=== PATIENT | male | born 1950 | race Caucasian/White ===

== ENCOUNTER 2017-08-23 11:01 | Emergency (ER) | payer MEDICARE, BC ==
[~2017-08-23] VITALS: Ht 180.3 cm; Wt 120.0 kg
[2017-08-23 11:01] VITALS: BP 128/72; PULSE 57; RESP 16; TEMP 97.6; O2SAT 97
[2017-08-23 11:15] VITALS: O2SAT 98
[2017-08-23 11:18] LABS: AUTOMATED NEUTROPHIL # 3.5 TH/MM3 (1.8-7.7); BASOPHIL % 0.6 % (0.0-2.0); EOSINOPHIL # 0.2 TH/MM3 (0-0.4); EOSINOPHIL % 3.6 % (0.0-4.0); HEMATOCRIT 39.9 % (39.0-51.0); HEMOGLOBIN 13.4 GM/DL (13.0-17.0); LYMPHOCYTE # 1.8 TH/MM3 (1.0-4.8); MEAN CELL VOLUME 90.9 FL (80.0-100.0); MEAN CORPUSCULAR HEMOGLOBIN 30.6 PG (27.0-34.0); MEAN CORPUSCULAR HGB CONC 33.7 % (32.0-36.0); MONO % 10.6 % (0.0-8.0); MONOCYTE # 0.7 TH/MM3 (0-0.9); NEUT % 56.2 % (16.0-70.0); PLATELET COUNT 196 TH/MM3 (150-450); RED BLOOD COUNT 4.39 MIL/MM3 (4.50-5.90); RED CELL DISTRIBUTION WIDTH 13.2 % (11.6-17.2); WHITE BLOOD COUNT 6.2 TH/MM3 (4.0-11.0)
[2017-08-23] MEDS ORDERED: NITROGLYCERIN 400 MCG/SPRAY 4.9 GM BOTTLE SL PRN (11:30)
[2017-08-23 11:37] LABS: INTERNATIONAL NORMALIZED RATIO 1.1 RATIO; PROTHROMBIN TIME - PATIENT 10.7 SEC (9.8-11.6)
[2017-08-23] MEDS ORDERED: ROSU1TAB4 PO (11:38)
[2017-08-23] MEDS ORDERED: PRAS10TA PO (11:38)
[2017-08-23] MEDS ORDERED: BUPR150CR PO (11:38)
[2017-08-23] MEDS ORDERED: LISI-515 PO (11:38)
[2017-08-23] MEDS ORDERED: ASPI-516 CHEW (11:38)
[2017-08-23] MEDS ORDERED: TRAZ50TA12 PO (11:38)
[2017-08-23] MEDS ORDERED: ESCI10TA PO (11:38)
--- NOTE | 2017-08-23 11:45 | PD ---
HPI . Chest pain Chief Complaint: Cardiac Complaint Time Seen by Provider: 11:07 Travel History International Travel<30 days: No Contact w/Intl Traveler<30days: No Traveled to known affect area: No History of Present Illness HPI This patient is status post carpal tunnel release this morning. Following the procedure while in the recovery room, he started complaining with some throat discomfort. He was given aspirin in the recovery room and a series of EKGs were done. He was noted to have some ischemic changes in the lateral leads. EVAC was called to have him transported to the hospital. EVAC reports that the patient subsequently developed bradycardia and hypotension. Heart rate went down to 32 and blood pressure went down to 73/50. He had the onset of the throat pain prior to the onset of bradycardia and hypotension. He was treated by the medics with atropine 0.5 mg IV. Heart rate and blood pressure improved. He reports no improvement in his throat discomfort with the atropine. In addition, the patient is complaining with increasing peripheral edema. That has been an ongoing problem for the last several months. He believes that it is related to the change of his antiplatelet medication from trade name to generic. The patient is also complaining with some nasal congestion. He states that he is having difficulty exhaling through his nose. This started after the surgery. He reports previous WI with 6 stents. His discomfort today is similar to the previous WI. [facility] Social History Tobacco Use: No Allergies-Medications (Allergen,Severity, Reaction): Coded Allergies: amlodipine (Verified Allergy, Unknown, 08/23/17) Reported Meds & Prescriptions Reported Meds & Active Scripts Active Reported Escitalopram (Escitalopram Oxalate) 10 Mg Tab 10 Mg PO DAILY Wellbutrin SR 12 HR (Bupropion HCl) 150 Mg Tab 150 Mg PO Q12HR Lisinopril 20 Mg Tab 20 Mg PO DAILY Rosuvastatin (Rosuvastatin Calcium) 5 Mg Tab 5 Mg PO DAILY Trazodone (Trazodone HCl) 50 Mg Tab 50 Mg PO HS Aspirin 81 Mg Chew 81 Mg CHEW DAILY Effient (Prasugrel) 10 Mg Tab 10 Mg PO DAILY Review of Systems Except as stated in HPI: all other systems reviewed are Neg HENT: Positive: Other (throat pain) Cardiovascular: No: Chest Pain or Discomfort Respiratory: Positive: Shortness of Breath Musculoskeletal: Positive: Pain (pain in the right wrist and hand secondary to surgery done earlier today) Physical Exam Narrative GENERAL: Awake and alert. Heart rate and blood pressure have normalized. SKIN: warm/dry. HEAD: Normocephalic. Atraumatic. EYES: Pupils equal and round. No scleral icterus. No injection or drainage. ENT: No nasal bleeding or discharge. Mucous membranes pink and moist. NECK: Trachea midline. Full range of motion without pain.. CARDIOVASCULAR: Regular rate and rhythm. Heart sounds normal. RESPIRATORY: No accessory muscle use. Clear to auscultation. Breath sounds equal bilaterally. GASTROINTESTINAL: Abdomen soft. Nontender. Bowel sounds present. Nondistended. MUSCULOSKELETAL: No obvious deformities. 2+ pretibial pitting edema. NEUROLOGICAL: Awake and alert. No obvious cranial nerve deficits. Motor grossly within normal limits. Normal speech. PSYCHIATRIC: Appropriate mood and affect; insight and judgment normal. Data Data Last Documented VS Vital Signs Date Time Temp Pulse Resp B/P (MAP) Pulse Ox O2 Delivery O2 Flow Rate FiO2 08/23/17 13:15 38 16 128/67 (87) 98 Room Air 08/23/17 11:01 97.6 Orders Orders Basic Metabolic Panel (Bmp) (08/23/17 11:07) Complete Blood Count With Diff (08/23/17 11:07) Magnesium (Mg) (08/23/17 11:07) Prothrombin Time / Inr (Pt) (08/23/17 11:07) Act Partial Throm Time (Ptt) (08/23/17 11:07) Troponin I (08/23/17 11:07) Chest, Single Ap (08/23/17 11:07) Ecg Monitoring (08/23/17 11:07) Iv Access Insert/Monitor (08/23/17 11:07) Oximetry (08/23/17 11:07) Nitroglycerin Sl [place] (Nitrolingual Sl (08/23/17 11:30) Morphine Inj (Morphine Inj) (08/23/17 13:15) Labs Laboratory Tests Test 08/23/17 11:10 08/23/17 12:30 White Blood Count 6.2 TH/MM3 Red Blood Count 4.39 MIL/MM3 Hemoglobin 13.4 GM/DL Hematocrit 39.9 % Mean Corpuscular Volume 90.9 FL Mean Corpuscular Hemoglobin 30.6 PG Mean Corpuscular Hemoglobin Concent 33.7 % Red Cell Distribution Width 13.2 % Platelet Count 196 TH/MM3 Mean Platelet Volume 7.0 FL Neutrophils (%) (Auto) 56.2 % Lymphocytes (%) (Auto) 29.0 % Monocytes (%) (Auto) 10.6 % Eosinophils (%) (Auto) 3.6 % Basophils (%) (Auto) 0.6 % Neutrophils # (Auto) 3.5 TH/MM3 Lymphocytes # (Auto) 1.8 TH/MM3 Monocytes # (Auto) 0.7 TH/MM3 Eosinophils # (Auto) 0.2 TH/MM3 Basophils # (Auto) 0.0 TH/MM3 CBC Comment DIFF FINAL Differential Comment Prothrombin Time 10.7 SEC Prothromb Time International Ratio 1.1 RATIO Activated Partial Thromboplast Time 24.6 SEC Blood Urea Nitrogen 15 MG/DL Creatinine 0.99 MG/DL Random Glucose 115 MG/DL Calcium Level 8.5 MG/DL Magnesium Level 2.1 MG/DL Sodium Level 140 MEQ/L Potassium Level 3.8 MEQ/L Chloride Level 105 MEQ/L Carbon Dioxide Level 27.7 MEQ/L Anion Gap 7 MEQ/L Estimat Glomerular Filtration Rate 75 ML/MIN Troponin I LESS THAN 0.02 NG/ML Exceptions Acute Myocardial Infarction ASA Not Given on Arrival: Already taken by patient MDM Medical Decision Making Medical Screen Exam Complete: Yes Emergency Medical Condition: Yes Medical Record Reviewed: Yes (unfortunately, he has no old records here. The records from outpatient surgery indicate that he had MAC. No general anesthesia.) Interpretation(s) EKG shows a sinus rhythm with a rate of 58. He has a right bundle-branch block. He has an elevated J point in lead III. his EKGs done at the outpatient surgical center do have a suggestion of ST segment depression in the lateral leads. However, I believe that this is part of his right bundle-branch block. Unfortunately, I do not have any old EKGs for comparison in our system. Differential Diagnosis Differential diagnosis of chest pain includes but is not limited to musculoskeletal pain, pulmonary embolism, acute coronary syndrome, pneumonia, pleurisy Narrative Course This patient presents to us from the surgery Center with throat pain. He had an episode of hypotension and bradycardia but had the onset of throat pain prior to hypotension and bradycardia. There was no change in his throat pain with treatment of the bradycardia/hypotension. He was given aspirin at the surgical center. I have ordered nitroglycerin as needed for him here. Cardiac workup is in progress. He has never received any nitroglycerin here. Oxygen was removed because of the complaint of nasal congestion. The patient reports that he is now feeling better. CXR>>No focal airspace disease or effusion. No pneumothorax. Mild cardiomegaly. Mild scoliosis.. The chest x-ray was independently viewed by me. CBC & BMP Diagram 08/23/17 11:10 08/23/17 12:30 Calcium Level 8.5, Magnesium Level 2.1 trop < 0.02 The patient is reporting that he feels well but home. His requested that I discuss the case with his bias cutter, Dr. Cruz. Critical Care Narrative Aggregate critical care time was 35 minutes. Time to perform other separately billable procedures was not included in the critical care time. My time did not include minutes spent treating any other patients simultaneously or on activities that did not directly contribute to the patient's treatment. The services I provided to this patient were to treat and/or prevent clinically significant deterioration due to bradycardia/hypotension I provided critical care services requiring my management, as noted below: Chart data review, documentation time, medication orders and management, vital sign assessments/reviewing monitor data, ordering and reviewing lab tests, ordering and interpreting/reviewing x-rays and diagnostic studies, care of the patient and discussion of the patient with the admitting physicians Physician Communication Physician Communication Dr. Cruz, his bias cutter, is comfortable with d/c Diagnosis Primary Impression: Throat pain Additional Impression: Bradycardia Referrals: Wing Bre Cruz MD Patient Instructions: Bradycardia (DC), General Instructions Disposition: 01 DISCHARGE HOME Condition: Stable Siri Ivey MD Aug 23, 2017 11:45
--- NOTE | 2017-08-23 12:17 | RADRPT ---
EXAM DATE/TIME: 08/23/2017 11:40 [place] COMPARISON: No previous studies available for comparison. INDICATIONS : Short of breath. Patient sent to the emergency room from an outpatient surgery center due to an abno rmal EGG. MEDICAL HISTORY : Hypertension. Myocardial infarction. Hypercholesterolemia. SURGICAL HISTORY : Coronary artery stent. ENCOUNTER: Initial ACUITY: 1 day PAIN SCORE: 0/10 LOCATION: Bilateral chest FINDINGS: A single view of the chest demonstrates the lungs to be symmetrically aerated without evidence of mas s, infiltrate or effusion. The cardiomediastinal contours are unremarkable except mild cardiomegaly. Osseous structures are intact. CONCLUSION: 1. No focal airspace disease or effusion. No pneumothorax. Mild cardiomegaly. Mild scoliosis. Ronald Bhatia MD on August 23, 2017 at 12:14 Board Certified Radiologist. This report was verified electronically.
[2017-08-23 12:45] LABS: CHLORIDE 105 MEQ/L (98-107); SODIUM (NA) 140 MEQ/L (136-145)
[2017-08-23 12:48] LABS: BICARBONATE 27.7 MEQ/L (21.0-32.0); BLOOD UREA NITROGEN 15 MG/DL (7-18); CALCIUM 8.5 MG/DL (8.5-10.1); GLUCOSE,RANDOM 115 MG/DL (74-106); MAGNESIUM 2.1 MG/DL (1.5-2.5)
[2017-08-23 12:51] VITALS: BP 141/76; PULSE 56; RESP 18; O2SAT 97
[2017-08-23 12:52] LABS: CREATININE 0.99 MG/DL (0.60-1.30); GLOMERULAR FILTRATION RATE 75 ML/MIN (>89)
[2017-08-23 12:57] LABS: TROPONIN I LESS THAN 0.02 NG/ML (0.02-0.05)
[2017-08-23 13:15] VITALS: BP 128/67; PULSE 38; RESP 16; O2SAT 98
[2017-08-23] MEDS ORDERED: MORPHINE SULFATE 2 MG/ML INJ IV PUSH ONE (13:15)
[2017-08-23 14:38] VITALS: BP 117/68
--- NOTE | 2017-08-24 12:56 | EKG ---
Date Performed: 08/23/2017 Time Performed: 10:49:28 PTAGE: 67 years EKG: SINUS BRADYCARDIA RIGHT BUNDLE BRANCH BLOCK ABNORMAL ECG INTERPRETATION BASED ON A DEFAULT AGE OF 39 YEARS NO PREVIOUS TRACING DOCTOR: Kendrick Campbell Interpretating Date/Time 08/24/2017 12:54:57
== END 2017-08-23 14:52 | disposition home or self-care (01) ==
LOC: PHED 11:01
DX: R07.0 Pain in throat (principal); R00.1 Bradycardia, unspecified; I95.9 Hypotension, unspecified; I45.10 Unspecified right bundle-branch block; I25.2 Old myocardial infarction
CPT/HCPCS: 71045; 80048; 83735; 84484; 85025; 85610; 85730; 93005; 99291